=== PATIENT | female | born 1995 | race Hispanic/Latino ===

== ENCOUNTER → 2016-10-28 | Outpatient (CLI) | payer OTHER ==
[2016-10-28 13:06] LABS: BASO # 0.1 K/mm3 (0.0-0.2); BASO % 1.1 % (0.0-1.0); EOS # 0.8 K/mm3 (0.0-0.50); EOS % 8.9 % (0.0-3.0); LARGE UNSTAINED CELL # 0.1 K/mm3 (0.0-0.4); LARGE UNSTAINED CELL % 1.2 % (0.0-4.0); LYMPH % 20.6 % (24.0-44.0); MEAN CORPUSCULAR HEMOGLOBIN 31.7 pg (27.0-33.0); MEAN CORPUSCULAR HGB CONC 33.3 g/dl (32.0-36.5); MEAN CORPUSCULAR VOLUME 95.2 fl (80.0-96.0); MONO # 0.2 K/mm3 (0.0-0.8); MONO % 1.9 % (0.0-5.0); NEUTROPHILS # 5.9 K/mm3 (1.8-7.7); NEUTROPHILS % 66.3 % (36.0-66.0); PLATELET COUNT, AUTOMATED 201 k/mm3 (150-450); RED CELL DISTRIBUTION WIDTH 14.4 % (11.5-14.5); WHITE BLOOD COUNT 8.9 K/mm3 (4.0-10.0)
[2016-10-28 13:29] LABS: HBsAg Prenatal NEGATIVE (NEGATIVE)
[2016-10-28 13:35] LABS: CONTROL LINE INT CTR LINE PRESENT; HIV SCRN NEGATIVE (NEGATIVE); HIV SCRN1 NEGATIVE (NEGATIVE)
== END | disposition home or self-care (01) ==
LOC: M SMT 10:41
PROVIDERS: ATTEND Obstetrics & Gynecology
DX: Z34.81 Encounter for supervision of other normal pregnancy, first trimester (principal); Z36 Encounter for antenatal screening of mother; Z3A.00 Weeks of gestation of pregnancy not specified

== ENCOUNTER → 2016-11-29 | Outpatient (CLI) | payer OTHER ==
--- NOTE | 2016-11-30 04:14 | REP ---
Clinical: Anatomical evaluation. Comparison: 10/17/2016 . Findings: Examination demonstrates a single live intrauterine in cephalic presentation. motion is identified by technologist. Placenta is noted anteriorly and grade zero without evidence for placenta previa or abruption. Amniotic fluid volume is normal. Cervix measures 4.4 cm in length and appears closed. No evidence for nuchal cord. Gestational age by LMP 21 weeks 3 days with JONAH 04/08/2017 . Gestational age by current measurements 22 weeks 0 days with JONAH 04/04/2017 . FHR equals 144 beats per minute. Estimated weight 494 grams ( 77th percentile). Anatomical assessment demonstrates normal structures including cranium, choroid plexus, cavum, cerebellum/posterior fossa, facial features, lungs, four-chamber heart/ventricular outflow tracts, diaphragm, stomach, cord insertion/three-vessel cord, kidneys/bladder, spine, and extremities. Impression: Single live intrauterine demonstrating appropriate interval growth. Anatomical assessment is complete and normal. Signed by Berlin Davison MD 11/30/2016 04:05 A
== END | disposition home or self-care (01) ==
LOC: M SMT 13:09
PROVIDERS: ATTEND Obstetrics & Gynecology
DX: Z34.82 Encounter for supervision of other normal pregnancy, second trimester (principal); Z36 Encounter for antenatal screening of mother; Z3A.21 21 weeks gestation of pregnancy

== ENCOUNTER 2016-12-13 09:04 | Emergency (ER) | payer OTHER ==
--- NOTE | 2016-12-13 10:10 | EDDOCDS ---
Physician Documentation [facility] Name: Alaina Deshpande Age: 21 yrs Sex: Female : 1995 Arrival Date: 12/13/2016 Time: 09:04 Bed TR7 Private MD: Disposition: 12/13/16 09:58 Discharged to Home/Self Care. Impression: Acute sinusitis, Acute serous otitis media, bilateral, Streptococcal pharyngitis, Dysuria, related conditions, unspecified, second trimester. - Condition is Stable. - Discharge Instructions: Dysuria, Sinusitis, Adult, Otitis Media, Adult, Mpaf-mf-Davh, Strep Throat, Hqcy-pg-Izwc, Medicines During . - Prescriptions for Amoxicillin 875 mg Oral Tablet - take 1 tablet by ORAL route every 12 hours for 10 days; 20 tablet. - Medication Reconciliation, Local Pharmacy Hours, Work Release Form - 2 day form. - Follow up: Ronny Olea; When: 1 - 2 days; Reason: Recheck today's complaints, Continuance of care. Follow up: Emergency Department; Reason: Worsening of conditions. - Problem is new. - Symptoms are unchanged. Historical: - Allergies: No known drug Allergies; - Home Meds: 1. Unknown oral 1 tablet daily - PMHx: none; - PSHx: none; - Social history: Smoking status: Patient states was never smoker of tobacco. Preferred Language: Citizen Of [place]. - Family history: Not pertinent. - : The pt / caregiver states he / she is not on anticoagulants. Home medication list is obtained from the patient, family members. - Exposure Risk Screening:: None identified. 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 (160.02 cm) (M); 09:07 Body Mass Index 24.59 (62.96 kg, 160.02 cm) lr2 MDM: 09:17 Urine Dip ordered. dt4 09:17 Strep Screen, Nursing ordered. dt4 09:19 Urine Culture Ordered. EDMS 09:29 Heart Tones ordered. ef1 10:06 Financial registration complete. mm15 Point of Care Testing: Urine Dip: 09:41 pH: 6; ; Specific [place]: 1.020; Ketones: Negative; Glucose: Negative; Protein: Trace; kcs Leukocytes: Negative; Nitrite: Negative ; Blood: Negative; Bilirubin: Negative ; Urobilinogen: Normal Ranges: Signatures: Dispatcher MedHost Nika Downing RN RN kcs Michelson, Staci, RN RN [facility] Harika Carolina PA-C PADarinel ef1 Barrie Clancy mm15 Nevin Agustin PA-C PA-C dt4 The chart was reviewed and I authenticate all verbal orders and agree with the evaluation and treatment provided.Corrections: (The following items were deleted from the chart) : 09:17 Obtain sample by nasopharyngeal swab ordered. dt4 ef1 09:30 09:19 INFLUENZA A&B RAPID ANTIGEN+RADHA ordered. EDMS EDMS MTDD
--- NOTE | 2016-12-13 10:10 | EDDOCDS ---
Nurse's Notes [facility] Name: Alaina Deshpande Age: 21 yrs Sex: Female : 1995 Arrival Date: 12/13/2016 Time: 09:04 Bed TR7 Private MD: Diagnosis: Acute sinusitis;Acute serous otitis media, bilateral;Streptococcal pharyngitis;Dysuria; related conditions, unspecified, second trimester Presentation: 12/13 09:10 Presenting complaint: Friend states: patient started not feeling good last night - kcs headache, runny nose, pain in right ear. and sore throat. also is 23 weeks , hurts when she walks and hurts when she urinates. Adult Sepsis Screening: The patient does not have new or worsening altered mentation. Patient's respiratory rate is less than 22. Systolic blood pressure is greater than 100. Patient has a qSOFA score of 0- Negative Sepsis Screen. Suicide/Homicide risk assessment- the patient denies having any suicidal and/or homicidal ideations and does not present with any other emotional, behavioral or mental health complaints. Status: Patient is not a guest services lead or dependent. Transition of care: patient was not received from another setting of care. 09:10 Acuity: MAI Level 3 kcs 09:10 Method Of Arrival: Walkin/Carried/Asstd kcs Triage Assessment: 09:15 General: Appears comfortable, well developed, well nourished, well groomed, Behavior is kcs cooperative, pleasant. Pain: Location: throat Pain currently is 5 out of 10 on a pain scale. HIV screening NA for this visit . Neurological: Level of Consciousness is awake, alert. Respiratory: Airway is patent Respiratory effort is even, unlabored, Respiratory pattern is regular, symmetrical. Derm: Skin is intact, is healthy with good turgor, Skin is dry, Skin is normal. 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 Unknown oral 1 tablet daily - PMHx: none; - PSHx: none; - Social history: Smoking status: Patient states was never smoker of tobacco. Preferred Language: Faroese. - Family history: Not pertinent. - : The pt / caregiver states he / she is not on anticoagulants. Home medication list is obtained from the patient, family members. - Exposure Risk Screening:: None identified. Screenin:08 Screening information is obtained from the patient. Fall risk: No risks identified. srm Assistance ADL's: requires no assistance with activities of daily living. Abuse/DV Screen: The patient / caregiver reports he/she is: not in a situation that causes fear, pain or injury. Nutritional screening: No deficits noted. Advance Directives: There is. Advance Directives: There is no active DNR order. home support is adequate. Assessment: 09:59 General: Appears in no apparent distress, Behavior is appropriate for age, cooperative. srm Respiratory: Airway is patent Respiratory effort is even, unlabored, loose congested cough and runny nose. Derm: scattered dry patches to both arms. pt and visitor states its from exposure to chemicals at work. encouraged pt to keep arms covered. PA aware of pt's c/o and asked to f/u with OB. Vital Signs: 09:07 BP 102 / 52; Pulse 90; Resp 17; Temp 96.8(T); Pulse Ox 100% on R/A; Weight 62.96 kg lr2 (M); Height 63 in. (160.02 cm) (M); 09:07 Body Mass Index 24.59 (62.96 kg, 160.02 cm) lr2 Vitals: 09:07 Log In Time: December 13, 2016 at 09:04. lr2 09:41 Strep Screen is obtained and tested: Positive. kcs 09:55 Heart Tones 139BPM. dsf ED Course: 09:06 Patient visited by Elysia Enrique. lr2 09:06 Patient moved to Waiting lr2 09:09 Patient moved to Pre RCE lr2 09:14 Triage Initiated kcs 09:17 Patient moved to Triage 2 kcs 09:19 Harika Carolina PA-C is PHCP. ef1 09:19 Tiny Nicolas MD is Attending Physician. ef1 09:19 Patient visited by Harika Carolina PA-C. ef1 09:41 Urine Culture Sent. kcs 09:52 Patient visited by Harika Carolina PA-C. ef1 09:58 Ronny Olea MD is Referral Physician. ef1 10:05 Patient moved to TR7 srm 10:08 The patient / caregiver is instructed regarding the plan of care and ED course. srm Accompanied by Family Member, Patient has correct armband on for positive identification. 10:08 No IV's were initiated during this patient's visit. No procedures done that require srm assistance. Point of Care Testing: Urine Dip: 09:41 pH: 6; ; Specific [place]: 1.020; Ketones: Negative; Glucose: Negative; Protein: Trace; kcs Leukocytes: Negative; Nitrite: Negative ; Blood: Negative; Bilirubin: Negative ; Urobilinogen: Normal Ranges: Order Results: There are currently no results for this order. Outcome: 09:58 Discharge ordered by Provider. ef1 10:08 Discharge Assessment: Patient awake, alert and oriented x 3. No cognitive and/or srm functional deficits noted. Patient verbalized understanding of disposition instructions. patient administered narcotics - no. The following High Risk Discharge criteria are identified: None. Discharged to home ambulatory, with family. Condition: stable. Discharge instructions given to patient, Instructed on discharge instructions, follow up and referral plans. medication usage, Demonstrated understanding of instructions, medications, Pt was receptive of discharge instructions/ teaching. Prescriptions given X 1, Work note provided to patient. No special radiology studies were completed. Property sent home with patient. 10:09 Patient left the ED. srm Signatures: Nika Fink RN RN kcs Michelson, Staci, RN RN srm Feola, Erica, PA-C PADarinel ef1 Ange Silver RN RN dsf Ross, Laura lr2 Corrections: (The following items were deleted from the chart) 09:14 09:10 Method Of Arrival: Ambulance brandon taylor MTDD
--- NOTE | 2016-12-15 11:10 | EDDOCDS ---
Nurse's Notes [facility] Name: Alaina Lopez Age: 21 yrs Sex: Female : 1995 Arrival Date: 12/13/2016 Time: 09:04 Bed TR7 Private MD: Diagnosis: Acute sinusitis;Acute serous otitis media, bilateral;Streptococcal pharyngitis;Dysuria; related conditions, unspecified, second trimester Presentation: 12/13 09:10 Presenting complaint: Friend states: patient started not feeling good last night - kcs headache, runny nose, pain in right ear. and sore throat. also is 23 weeks , hurts when she walks and hurts when she urinates. Adult Sepsis Screening: The patient does not have new or worsening altered mentation. Patient's respiratory rate is less than 22. Systolic blood pressure is greater than 100. Patient has a qSOFA score of 0- Negative Sepsis Screen. Suicide/Homicide risk assessment- the patient denies having any suicidal and/or homicidal ideations and does not present with any other emotional, behavioral or mental health complaints. 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 Transition of care: patient was not received from another setting of care. 09:10 Acuity: MAI Level 3 kcs 09:10 Method Of Arrival: Walkin/Carried/Asstd kcs Triage Assessment: 09:15 General: Appears comfortable, well developed, well nourished, well groomed, Behavior is kcs cooperative, pleasant. Pain: Location: throat Pain currently is 5 out of 10 on a pain scale. HIV screening NA for this visit . Neurological: Level of Consciousness is awake, alert. Respiratory: Airway is patent Respiratory effort is even, unlabored, Respiratory pattern is regular, symmetrical. Derm: Skin is intact, is healthy with good turgor, Skin is dry, Skin is normal. 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 Unknown oral 1 tablet daily - PMHx: none; - PSHx: none; - Social history: Smoking status: Patient states was never smoker of tobacco. Preferred Language: Pashto. - Family history: Not pertinent. - : The pt / caregiver states he / she is not on anticoagulants. Home medication list is obtained from the patient, family members. - Exposure Risk Screening:: None identified. Screenin:08 Screening information is obtained from the patient. Fall risk: No risks identified. srm Assistance ADL's: requires no assistance with activities of daily living. Abuse/DV Screen: The patient / caregiver reports he/she is: not in a situation that causes fear, pain or injury. Nutritional screening: No deficits noted. Advance Directives: There is. Advance Directives: There is no active DNR order. home support is adequate. Assessment: 09:59 General: Appears in no apparent distress, Behavior is appropriate for age, cooperative. srm Respiratory: Airway is patent Respiratory effort is even, unlabored, loose congested cough and runny nose. Derm: scattered dry patches to both arms. pt and visitor states its from exposure to chemicals at work. encouraged pt to keep arms covered. PA aware of pt's c/o and asked to f/u with OB. Vital Signs: 09:07 BP 102 / 52; Pulse 90; Resp 17; Temp 96.8(T); Pulse Ox 100% on R/A; Weight 62.96 kg lr2 (M); Height 63 in. (160.02 cm) (M); 09:07 Body Mass Index 24.59 (62.96 kg, 160.02 cm) lr2 Vitals: 09:07 Log In Time: December 13, 2016 at 09:04. lr2 09:41 Strep Screen is obtained and tested: Positive. kcs 09:55 Heart Tones 139BPM. dsf ED Course: 09:06 Patient visited by Elysia Enrique. lr2 09:06 Patient moved to Waiting lr2 09:09 Patient moved to Pre RCE lr2 09:14 Triage Initiated kcs 09:17 Patient moved to Triage 2 kcs 09:19 Harika Carolina PA-C is PHCP. ef1 09:19 Tiny Nicolas MD is Attending Physician. ef1 09:19 Patient visited by Harika Carolina PA-C. ef1 09:41 Urine Culture Sent. kcs 09:52 Patient visited by Harika Carolina PA-C. ef1 09:58 Ronny Olea MD is Referral Physician. ef1 10:05 Patient moved to TR7 srm 10:08 The patient / caregiver is instructed regarding the plan of care and ED course. srm Accompanied by Family Member, Patient has correct armband on for positive identification. 10:08 No IV's were initiated during this patient's visit. No procedures done that require srm assistance. 10:46 [facility] Payment Agreement was scanned into JumpCam and attached to record. mm15 13:12 T-Sheet-- Draft Copy was scanned into JumpCam and attached to record. 12/14 15:27 Patient name changed from Alaina\S\Rowena\S\Briggs-Lopez\S\ to Alaina\S\S\S\Adarme Lopez. EDTX Point of Care Testing: Urine Dip: 12/13 09:41 pH: 6; ; Specific [place]: 1.020; Ketones: Negative; Glucose: Negative; Protein: Trace; kcs Leukocytes: Negative; Nitrite: Negative ; Blood: Negative; Bilirubin: Negative ; Urobilinogen: Normal Ranges: Order Results: Lab Order: Urine Culture; SPEC'M 12/13/16 09:43 Test: URINE CULTURE; Value: <EXTERNAL COMMENT eCWMed> FULL REPORT IN LAB NOTES (eCW and Medent).; Status: F Test: URINE CULTURE; Value: URINE CULTURE RESULT NO GROWTH; Status: F Outcome: 09:58 Discharge ordered by Provider. ef1 10:08 Discharge Assessment: Patient awake, alert and oriented x 3. No cognitive and/or srm functional deficits noted. Patient verbalized understanding of disposition instructions. patient administered narcotics - no. The following High Risk Discharge criteria are identified: None. Discharged to home ambulatory, with family. Condition: stable. Discharge instructions given to patient, Instructed on discharge instructions, follow up and referral plans. medication usage, Demonstrated understanding of instructions, medications, Pt was receptive of discharge instructions/ teaching. Prescriptions given X 1, Work note provided to patient. No special radiology studies were completed. Property sent home with patient. 10:09 Patient left the ED. srm Signatures: Dispatcher MedHo EDTX Nika Fink RN RN kcs Michelson, Staci, RN RN srm Jaclyn Johnston, Reg Reg gb Harika Carolina, PA-C PA-C ef1 Ange Silver RN RN dsf McGrath, Marlynn mm15 Elysia Enrique lr2 Corrections: (The following items were deleted from the chart) 09:14 09:10 Method Of Arrival: Ambulance kcs kcs Chart Complete MTDD
--- NOTE | 2016-12-15 11:10 | EDDOCDS ---
Physician Documentation [facility] Name: Alaina Lopez Age: 21 yrs Sex: Female : 1995 Arrival Date: 12/13/2016 Time: 09:04 Bed TR7 Private MD: Disposition: 12/13/16 09:58 Discharged to Home/Self Care. Impression: Acute sinusitis, Acute serous otitis media, bilateral, Streptococcal pharyngitis, Dysuria, related conditions, unspecified, second trimester. - Condition is Stable. - Discharge Instructions: Dysuria, Sinusitis, Adult, Otitis Media, Adult, Sppa-kt-Dhmg, Strep Throat, Qbza-ak-Sdan, Medicines During . - Prescriptions for Amoxicillin 875 mg Oral Tablet - take 1 tablet by ORAL route every 12 hours for 10 days; 20 tablet. - Medication Reconciliation, Local Pharmacy Hours, Work Release Form - 2 day form. - Follow up: Ronny Olea; When: 1 - 2 days; Reason: Recheck today's complaints, Continuance of care. Follow up: Emergency Department; Reason: Worsening of conditions. - Problem is new. - Symptoms are unchanged. Historical: - Allergies: No known drug Allergies; - Home Meds: 1. Unknown oral 1 tablet daily - PMHx: none; - PSHx: none; - Social history: Smoking status: Patient states was never smoker of tobacco. Preferred Language: Malay. - Family history: Not pertinent. - : The pt / caregiver states he / she is not on anticoagulants. Home medication list is obtained from the patient, family members. - Exposure Risk Screening:: None identified. 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 (160.02 cm) (M); 09:07 Body Mass Index 24.59 (62.96 kg, 160.02 cm) lr2 MDM: 09:17 Urine Dip ordered. dt4 09:17 Strep Screen, Nursing ordered. dt4 09:19 Urine Culture Ordered. EDMS 09:29 Heart Tones ordered. ef1 10:06 Financial registration complete. mm15 10:46 [facility] Payment Agreement was scanned into Lailaihui and attached to record. mm15 13:12 T-Sheet-- Draft Copy was scanned into Lailaihui and attached to record. gb Point of Care Testing: Urine Dip: 09:41 pH: 6; ; Specific [place]: 1.020; Ketones: Negative; Glucose: Negative; Protein: Trace; kcs Leukocytes: Negative; Nitrite: Negative ; Blood: Negative; Bilirubin: Negative ; Urobilinogen: Normal Ranges: Signatures: Dispatcher MedHost EDMS Nika Fink RN RN kcs Michelson, Staci, RN RN srm Jaclyn Johnston, Reg Reg gb Harika Carolina PA-C PA-C ef1 Barrie Clancy mm15 Nevin Agustin PA-C PA-C dt4 The chart was reviewed and I authenticate all verbal orders and agree with the evaluation and treatment provided.Corrections: (The following items were deleted from the chart) 09:29 09:17 Obtain sample by nasopharyngeal swab ordered. dt4 ef1 09:30 09:19 INFLUENZA A&B RAPID ANTIGEN+RADHA ordered. EDMS EDMS Attachments: 10:46 [facility] Payment Agreement mm15 13:12 T-Sheet-- Draft Copy gb Chart Complete MTDD
--- NOTE | 2016-12-15 11:10 | EDDOCDS ---
Physician Documentation [facility] Name: Alaina Lopez Age: 21 yrs Sex: Female : 1995 Arrival Date: 12/13/2016 Time: 09:04 Bed TR7 Private MD: Disposition: 12/13/16 09:58 Discharged to Home/Self Care. Impression: Acute sinusitis, Acute serous otitis media, bilateral, Streptococcal pharyngitis, Dysuria, related conditions, unspecified, second trimester. - Condition is Stable. - Discharge Instructions: Dysuria, Sinusitis, Adult, Otitis Media, Adult, Hcav-cg-Humj, Strep Throat, Qyqj-oz-Nloh, Medicines During . - Prescriptions for Amoxicillin 875 mg Oral Tablet - take 1 tablet by ORAL route every 12 hours for 10 days; 20 tablet. - Medication Reconciliation, Local Pharmacy Hours, Work Release Form - 2 day form. - Follow up: Ronny Olea; When: 1 - 2 days; Reason: Recheck today's complaints, Continuance of care. Follow up: Emergency Department; Reason: Worsening of conditions. - Problem is new. - Symptoms are unchanged. Historical: - Allergies: No known drug Allergies; - Home Meds: 1. Unknown oral 1 tablet daily - PMHx: none; - PSHx: none; - Social history: Smoking status: Patient states was never smoker of tobacco. Preferred Language: Persian. - Family history: Not pertinent. - : The pt / caregiver states he / she is not on anticoagulants. Home medication list is obtained from the patient, family members. - Exposure Risk Screening:: None identified. 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 (160.02 cm) (M); 09:07 Body Mass Index 24.59 (62.96 kg, 160.02 cm) lr2 MDM: 09:17 Urine Dip ordered. dt4 09:17 Strep Screen, Nursing ordered. dt4 09:19 Urine Culture Ordered. EDMS 09:29 Heart Tones ordered. ef1 10:06 Financial registration complete. mm15 10:46 [facility] Payment Agreement was scanned into Lozo and attached to record. mm15 13:12 T-Sheet-- Draft Copy was scanned into Lozo and attached to record. gb Point of Care Testing: Urine Dip: 09:41 pH: 6; ; Specific [place]: 1.020; Ketones: Negative; Glucose: Negative; Protein: Trace; kcs Leukocytes: Negative; Nitrite: Negative ; Blood: Negative; Bilirubin: Negative ; Urobilinogen: Normal Ranges: Signatures: Dispatcher MedHost EDMS Nika Fink RN RN kcs Michelson, Staci, RN RN srm Jaclyn Johnston, Reg Reg gb Harika Carolina PA-C PA-C ef1 Barrie Clancy mm15 Nevin Agustin PA-C PA-C dt4 The chart was reviewed and I authenticate all verbal orders and agree with the evaluation and treatment provided.Corrections: (The following items were deleted from the chart) 09:29 09:17 Obtain sample by nasopharyngeal swab ordered. dt4 ef1 09:30 09:19 INFLUENZA A&B RAPID ANTIGEN+RADHA ordered. EDMS EDMS Attachments: 10:46 [facility] Payment Agreement mm15 13:12 T-Sheet-- Draft Copy gb Chart Complete MTDD
== END 2016-12-13 10:09 | disposition home or self-care (01) ==
LOC: M ED 09:04
DX: O98.812 Other maternal infectious and parasitic diseases complicating pregnancy, second trimester (principal); J01.90 Acute sinusitis, unspecified; H66.93 Otitis media, unspecified, bilateral; J02.0 Streptococcal pharyngitis; R30.0 Dysuria; Z3A.23 23 weeks gestation of pregnancy

== ENCOUNTER → 2016-12-27 | Outpatient (CLI) | payer OTHER ==
[2016-12-27 19:07] LABS: MEAN CORPUSCULAR HEMOGLOBIN 31.7 pg (27.0-33.0); MEAN CORPUSCULAR VOLUME 96.1 fl (80.0-96.0); RED CELL DISTRIBUTION WIDTH 13.1 % (11.5-14.5); WHITE BLOOD COUNT 11.6 K/mm3 (4.0-10.0)
== END ==
LOC: M LAB 15:34
PROVIDERS: ATTEND Obstetrics & Gynecology
DX: Z34.82 Encounter for supervision of other normal pregnancy, second trimester (principal)

== ENCOUNTER → 2017-03-10 | Outpatient (REF) | payer OTHER | LOC: M LAB REF 17:11 | PROVIDERS: ATTEND Obstetrics & Gynecology | DX: Z34.83 Encounter for supervision of other normal pregnancy, third trimester (principal); Z36 Encounter for antenatal screening of mother; Z3A.00 Weeks of gestation of pregnancy not specified ==

== ENCOUNTER 2017-03-29 22:30 | Outpatient (CLI) | payer OTHER ==
[~2017-03-29] VITALS: Ht 162.6 cm; Wt 67.0 kg
[2017-03-29 22:48] VITALS: BP 115/69
[2017-03-29 22:50] VITALS: BP 115/69
[2017-03-30 00:59] VITALS: BP 119/81
[2017-04-01] MEDS ORDERED: PRENTAB9 PO (07:51)
[2017-04-01] MEDS ORDERED: ACET50TA PO (07:51)
[2017-04-01] MEDS ORDERED: IBUP-1114 PO (07:51)
== END 2017-03-30 01:02 | disposition home or self-care (01) ==
LOC: MERGE 22:30 → M LDO 22:30
PROVIDERS: ATTEND Advanced Practice Midwife
DX: O47.1 False labor at or after 37 completed weeks of gestation (principal); Z3A.38 38 weeks gestation of pregnancy

== ENCOUNTER 2017-05-25 09:06 | Emergency (ER) | payer MEDICAID, OTHER ==
[~2017-05-25] VITALS: Ht 157.5 cm; Wt 59.5 kg
[~2017-05-25 09:06] MED LIST: ACET50TA PO; IBUP-1114 PO; PRENTAB9 PO
[2017-05-25 09:07] VITALS: BP 101/58
[2017-05-25 10:12] LABS: YEAST LIKE CELL URINE AUTO SMALL
[2017-05-25] MEDS ORDERED: DIFL150T PO (11:24)
[2017-05-25] MEDS ORDERED: PYRI1TAB5 PO (11:24)
[2017-05-25] MEDS ORDERED: MACR100C43 PO (11:24)
== END 2017-05-25 11:30 | disposition home or self-care (01) ==
LOC: M ED 09:06
DX: N30.00 Acute cystitis without hematuria (principal); B37.3 Candidiasis of vulva and vagina; B95.62 Methicillin resistant Staphylococcus aureus infection as the cause of diseases classified elsewhere